=== PATIENT | male | born 1960 | race Caucasian/White ===

== ENCOUNTER → 2022-02-21 | Outpatient (POV) | payer MEDICARE, BC ==
[~2022-02-21] VITALS: Ht 170.2 cm; Wt 79.5 kg
[2022-02-21 10:40] VITALS: BP 142/88
== END ==
LOC: M IRPOV 10:25
PROVIDERS: ATTEND Radiology Diagnostic Radiology
DX: I82.432 Acute embolism and thrombosis of left popliteal vein (principal); Z79.01 Long term (current) use of anticoagulants; Z87.891 Personal history of nicotine dependence

== ENCOUNTER → 2022-03-16 | Outpatient (CLI) | payer MEDICARE, BC ==
[~2022-03-16] MED LIST: HEPARIN 1,000UNITS/ML 10ML VIAL (FOR RADIOLOGY & DIALYSIS ONLY) As Ordered ONE; ISOVUE-300 61% 50ML VIAL As Ordered ONE; LIDOCAINE 1% MDV 20ML VIAL As Ordered ONE; MIDAZOLAM INJ 2MG/2ML VIAL As Ordered ONE; NS 1,000 ML IV SCH; diphenhydrAMINE 50MG/ML VIAL As Ordered ONE; fentaNYL 100 MCG/2 ML INJECTION As Ordered ONE
[2022-03-16 13:44] LABS: INR 1.6; PROTHROMBIN TIME 19.3 SECONDS (12.5-14.5)
[2022-03-16 16:15] VITALS: BP 169/89
== END ==
LOC: M IRPRO 11:33
PROVIDERS: ATTEND Radiology Diagnostic Radiology
DX: Z45.2 Encounter for adjustment and management of vascular access device (principal); Z86.718 Personal history of other venous thrombosis and embolism; Z95.828 Presence of other vascular implants and grafts
CPT/HCPCS: 36012; 36415; 75820; 85610; 99152; 99153; C1769; C1894; Q9967